=== PATIENT | male | born 1960 | race Caucasian/White ===

== ENCOUNTER 2016-11-11 20:41 | Emergency (ER) | payer MEDICAID, OTHER ==
[~2016-11-11] VITALS: Ht 188 cm; Wt 215.0 kg
[2016-11-11] MEDS ORDERED: MULT1CHW39 PO (21:02)
[2016-11-11] MEDS ORDERED: ZITHTAB PO (21:02)
[2016-11-11] MEDS ORDERED: ASPI81TA24 PO (21:02)
[2016-11-11] MEDS ORDERED: ALBU17IN2 INH (21:02)
[2016-11-11] MEDS ORDERED: SPIR25TA2 PO (21:02)
[2016-11-11] MEDS ORDERED: LISI10TA4 PO (21:02)
[2016-11-11] MEDS ORDERED: LEVO175T2 PO (21:02)
[2016-11-11] MEDS ORDERED: METO1TAB7 PO (21:02)
[2016-11-11] MEDS ORDERED: VENL150C43 PO (21:02)
[2016-11-11] MEDS ORDERED: methylPREDNISolone INJ 125 MG/2 ML VIAL (J2930) IV ONE (21:30)
[2016-11-11] MEDS: IPRATROPIUM 0.5MG/ALBUTEROL 2.5MG INH SOL UD 3ML (DUONEB)(J7620) NEB PRN ×3 (21:53→22:04)
[2016-11-11] MEDS ORDERED: LORazepam 1 MG TAB PO STA (21:54)
--- NOTE | 2016-11-11 21:55 | ECGEPIP ---
Stationary ECG Study [facility] - ED Test Date: 2016-11-11 Pat Name: RAYSA BOYD Department: Room: - Gender: M [employer]: : [id number] Requested By: TREVOR Rowe Order Number: [id number] Reading MD: Nile Ortiz Measurements Intervals [place] Rate: 95 P: 24 [place]: 151 QRS: -11 QRSD: 113 T: -21 QT: 339 QTc: 427 Interpretive Statements SINUS RHYTHM INFERIOR MYOCARDIAL INFARCTION, OF INDETERMINATE AGE NO PRIORS Electronically Signed On 11-11-2016 21:54:37 EDT by Nile Ortiz
[2016-11-11 22:19] LABS: BASO % 0.2 % (0.0-1.0); EOS # 0.2 10^3/uL (0.0-0.50); EOS % 1.7 % (0.0-3.0); IMMATURE GRANULOCYTE % 0.3 % (0-0); LYMPH # 3.2 10^3/uL (1.5-4.5); LYMPH % 25.5 % (24.0-44.0); MEAN CORPUSCULAR HEMOGLOBIN 32.6 pg (27.0-33.0); MEAN CORPUSCULAR HGB CONC 34.5 g/dl (32.0-36.5); MEAN CORPUSCULAR VOLUME 94.5 fl (80.0-96.0); MONO # 1.2 10^3/uL (0.0-0.8); MONO % 9.8 % (0.0-5.0); NEUTROPHILS # 7.8 10^3/uL (1.8-7.7); NEUTROPHILS % 62.5 % (36.0-66.0); PLATELET COUNT, AUTOMATED 150 10^3/uL (150-450); RED CELL DISTRIBUTION WIDTH 14.8 % (11.5-14.5); WHITE BLOOD COUNT 12.4 10^3/uL (4.0-10.0)
[2016-11-11 22:20] LABS: ADD MORPHOLOGY? NO
[2016-11-11 22:39] LABS: CALCIUM LEVEL 8.4 MG/DL (8.5-10.1); CREATININE FOR GFR 1.31 MG/DL (0.70-1.30); GLOMERULAR FILTRATION RATE 59.8 (>56); POTASSIUM SERUM 3.4 MEQ/L (3.5-5.1)
[2016-11-11 22:43] LABS: ALBUMIN 3.3 GM/DL (3.2-5.2); BILIRUBIN,DIRECT 0.4 MG/DL (0.0-0.2); BILIRUBIN,TOTAL 1.3 MG/DL (0.2-1.0); TOTAL PROTEIN 6.6 GM/DL (6.4-8.2)
[2016-11-11] MEDS ORDERED: FUROSEMIDE 40 MG/4 ML VIAL (J1940) IV ONE (23:30)
[2016-11-11 23:40] VITALS: BP 117/63
[2016-11-11] MEDS ORDERED: POTASSIUM CHLORIDE 10 MEQ SR TABLET PO ONE ×2 (23:45)
--- NOTE | 2016-11-12 08:12 | REP ---
Chest two views HISTORY: Cough Comparison: None The lungs are clear. The cardiac silhouette is enlarged. The pulmonary vasculature is normal in appearance. The bony structure is intact. A cardiac pacemaker is present. IMPRESSION: No acute disease. Signed by Pillo Martinez MD 11/12/2016 08:04 A
== END 2016-11-11 23:51 | disposition home or self-care (01) ==
LOC: M ED 20:41
DX: R06.02 Shortness of breath (principal); J45.909 Unspecified asthma, uncomplicated; I50.9 Heart failure, unspecified; I11.0 Hypertensive heart disease with heart failure; R94.5 Abnormal results of liver function studies; E03.9 Hypothyroidism, unspecified; F31.9 Bipolar disorder, unspecified; F43.10 Post-traumatic stress disorder, unspecified; Z79.899 Other long term (current) drug therapy; Z79.2 Long term (current) use of antibiotics; Z79.82 Long term (current) use of aspirin
CPT/HCPCS: 36415; 71020; 80048; 80076; 83605; 83880; 85025; 93005; 93041; 94640; 94760; 96374; 96375; 99285; J1940; J2930